=== PATIENT | male | born 1995 | race African-American/Black ===

== ENCOUNTER 2016-11-06 02:29 | Emergency (ER) | payer OTHER ==
[2016-11-06 02:53] VITALS: BP 125/80; PULSE 60; TEMP 97.2; BMI 32.5
[2016-11-06] MEDS ORDERED: SODIUM CHLORIDE 1,000 ML IV STA (03:07)
[2016-11-06] MEDS ORDERED: FAMOTIDINE 20 MG/50 ML IVPB 50 ML IVPB ONE ×2 (03:07→03:16)
[2016-11-06 03:35] LABS: EOSINOPHIL 1.3 % (0-4.5); MCH 29.4 pg (25.7-33.7); MCHC 33.5 g/dl (32.0-35.9); MEAN CELL VOLUME 87.8 fl (80-96); MEAN PLT VOLUME 8.9 fl (7.5-11.1); NEUTROPHILS 42.7 % (42.8-82.8); PLATELET COUNT 156 K/MM3 (134-434); RDW 13.6 % (11.9-15.9); WHITE BLOOD COUNT 4.7 K/mm3 (4.0-10.0)
--- NOTE | 2016-11-06 04:01 | PDOC ---
History of Present Illness - General Chief Complaint: Pain, Acute Stated Complaint: ABD PAIN Time Seen by Provider: 11/06/16 02:40 History Source: Patient, Parent(s) (Mother) Exam Limitations: No Limitations - History of Present Illness Travel History: No Initial Comments: 11/06/16 03:57 21yo Male patient presents to ED c/o lower abd pain x 3 days. Denies fever, n/v/ d, constipation, back pain, CP, dysuria, hematuria, change in appetite, or any other complaints at this time. PCP- Dr. Austin. Timing/Duration: reports: constant Quality: reports: mild Abdominal Pain Onset Location: reports: suprapubic Pain Radiation: reports: no radiation Activities at Onset: reports: none Treatment Prior to Arrive: worse with: analgesics, antacids, cold pack, heat, laxative, enema, other Aggravating Factors: worse with: None, Defecation, Eating, Emotional upset, Exertion, [place], Movement, Voiding, Change in position Alleviating Factors: worse with: None, Belching, Shallow Breathing, Defecation, Eating, Holding Breath, Passing Gas, Change in Position, Rest, Voiding, Vomiting Past History - Travel Traveled outside of the country in the last 30 days: No Close contact w/someone who was outside of country & ill: No - Past Medical History Allergies/Adverse Reactions: Allergies Allergy/AdvReac Type Severity Reaction Status Date / Time No Known Allergies Allergy Verified 11/06/16 02:43 Home Medications: Ambulatory Orders NK [No Known Home Medication] 11/06/16 - Psycho/Social/Smoking Cessation Hx Suicidal Ideation: No Smoking History: Never smoked Have you smoked in the past 12 months: No Information on smoking cessation initiated: No Hx Alcohol Use: No Drug/Substance Use Hx: No Abd/GI Specific PMHX - Complaint Specific PMHX Colitis: No Diverticulitis: No Gall Bladder Disease: No GERD: No Hepatitis: No Irritable Bowel Synd (IBS): No Pancreatitis: No GI Ulcer Disease: No Review of Systems - Review of Systems Able to Perform ROS?: Yes Is the patient limited Maltese proficient: No Constitutional: No: Chills, Fever ABD/GI: Yes: Other (Abdominal Pain Lower). No: Constipated, Diarrhea, Difficulty Swallowing, Nausea, Poor Appetite, Poor Fluid Intake, Rectal Bleeding , Vomiting : No: Burning, Dysuria, Discharge, Hematuria, Pain Musculoskeletal: No: Back Pain Integumentary: No: Bruising, Erythema Neurological: No: Headache All Other Systems: Reviewed and Negative *Physical Exam - Vital Signs Last Vital Signs Temp Pulse Resp BP Pulse Ox 97.2 F L 60 20 125/80 100 11/06/16 02:44 11/06/16 02:44 11/06/16 02:44 11/06/16 02:44 11/06/16 02:44 - Physical Exam General Appearance: Yes: Nourished, Appropriately Dressed. No: Apparent Distress, Mild Distress, Moderate Distress, Severe Distress Neck: positive: Trachea midline, Supple. negative: Stridor, Lymphadenopathy (R) , Lymphadenopathy (L) Respiratory/Chest: positive: Lungs Clear, Normal Breath Sounds. negative: Respiratory Distress, Accessory Muscle Use, Labored Respiration, Rapid RR Cardiovascular: positive: Regular Rhythm, Regular Rate. negative: Edema, JVD, Murmur Gastrointestinal/Abdominal: positive: Normal Bowel Sounds, Tender (Lower abdomen (Suprapubic)), Soft, Tenderness. negative: Distended, Guarding, Rebound Musculoskeletal: positive: Normal Inspection. negative: CVA Tenderness Extremity: positive: Normal Capillary Refill, Normal Inspection, Normal Range of Motion. negative: Pedal Edema, Swelling Integumentary: positive: Normal Color, Dry, Warm Neurologic: positive: limnology teacher II-XII NML intact, Fully Oriented, Alert, Normal Mood/ Affect, Normal Response, Motor Strength 5/5 ED Treatment Course - LABORATORY CBC & Chemistry Diagram: 11/06/16 03:18 11/06/16 03:18 - ADDITIONAL ORDERS Additional order review: 11/06/16 03:18 RBC 4.75 MCV 87.8 MCHC 33.5 RDW 13.6 MPV 8.9 Neutrophils % 42.7 L Lymphocytes % 44.3 H Monocytes % 10.7 H Eosinophils % 1.3 Basophils % 1.0 - Medications Given in the ED: ED Medications Discontinued Medications Generic Name Dose Route Start Last Admin Trade Name Freq PRN Reason Stop Dose Admin Famotidine/Sodium Chloride 50 mls @ 100 mls/hr 11/06/16 03:07 11/06/16 03:37 Pepcid 20 Mg Premixed Ivpb - IVPB 11/06/16 03:36 100 mls/hr ONCE ONE Administration Progress Note - Progress Note Progress Note: Patient on cell phone "Face Time" with someone laughing. No acute distress noted. *DC/Admit/Observation/Transfer Diagnosis at time of Disposition: Abdominal pain Qualifiers: Abdominal location: lower abdomen, unspecified Qualified Code(s): R10.30 - Lower abdominal pain, unspecified - Discharge Dispostion Disposition: HOME Condition at time of disposition: Improved Admit: No - Patient Instructions Printed Discharge Instructions: DI for Abdominal Pain-Adult Additional Instructions: FOLLOW UP WITH YOUR DOCTOR DISCUSSED. MOTRIN OR TYLENOL FOR PAIN NEEDED. RETURN IF SYMPTOMS WORSEN, OR ANY CONCERNS FOR FURTHER EVALUATION. Print Language: KAZAKH
[2016-11-06 04:05] LABS: ALBUMIN 3.9 g/dl (3.4-5.0); ALK PHOS 47 U/L (45-117); AMYLASE 90 U/L (25-115); ANION GAP 8 (8-16); BILIRUBIN,TOTAL 0.4 mg/dL (0.2-1.0); CALCIUM 8.5 mg/dL (8.5-10.1); CO2 28 mmol/L (21-32); GLUCOSE,RANDOM 96 mg/dL (74-106); SGOT/AST 9 U/L (15-37); SGPT/ALT 17 U/L (12-78); TOT PROT 6.5 g/dl (6.4-8.2)
[2016-11-06 04:25] LABS: URINE APPEARANCE CLEAR; URINE BILIRUBIN NEGATIVE (NEGATIVE); URINE BLOOD NEGATIVE (NEGATIVE); URINE COLOR LT. YELLOW; URINE GLUCOSE (UA) NEGATIVE (NEGATIVE); URINE KETONE NEGATIVE (NEGATIVE); URINE LEUK ESTERASE NEGATIVE (NEGATIVE); URINE NITRITE NEGATIVE (NEGATIVE); URINE PROTEIN NEGATIVE (NEGATIVE); URINE UROBILINOGEN 0.2 E.U/dl E.U./dl (0.2-1.0)
== END 2016-11-06 05:06 | disposition home or self-care (01) ==
LOC: JER 02:29
PROC: 3E033GC Introduction of Other Therapeutic Substance into Peripheral Vein, Percutaneous Approach (ICD-10-PCS; principal; 2016-11-06)
PROC: 3E0337Z Introduction of Electrolytic and Water Balance Substance into Peripheral Vein, Percutaneous Approach (ICD-10-PCS; 2016-11-06)
DX: R10.30 Lower abdominal pain, unspecified (principal)
CPT/HCPCS: 36415; 80053; 81003; 82150; 83690; 85025; 96361; 96365; 99283-25

== ENCOUNTER 2020-05-12 17:26 | Inpatient (IN) | payer OTHER ==
--- NOTE | 2020-05-12 17:37 | PDOC ---
History of Present Illness - General Chief Complaint: Pain Stated Complaint: testicular pain Time Seen by Provider: 05/12/20 17:37 Past History - Medical History Allergies/Adverse Reactions: Allergies Allergy/AdvReac Type Severity Reaction Status Date / Time No Known Allergies Allergy Verified 03/19/18 18:13 Home Medications: Ambulatory Orders NK [No Known Home Medication] 11/06/16 COPD: No - Psycho-Social/Smoking History Smoking History: Never smoked Have you smoked in the past 12 months: No Discharge - Follow up/Referral Referrals: Ravindra Austin MD [Primary Care Provider] - - Patient Discharge Instructions - Post Discharge Activity
--- OUTSIDE RECORDS SUMMARY | 2020-05-12 17:44 | XMS ---
:1995 Author Organization [facility] Support Name Relationship Address Phone UE Unavailable Unavailable Unavailable ELTON CLARK MOTHER [address] [place] [address] Re-disclosure Warning The records that you are about to access may contain information from federally- assisted alcohol or drug abuse programs. If such information is present, then the following federally mandated warning applies: This information has been disclosed to you from records protected by federal confidentiality rules (42 CFR part 2). The federal rules prohibit you from making any further disclosure of this information unless further disclosure is expressly permitted by the written consent of the person to whom it pertains or as otherwise permitted by 42 CFR part 2. A general authorization for the release of medical or other information is NOT sufficient for this purpose. The Federal rules restrict any use of the information to criminally investigate or prosecute any alcohol or drug abuse patient.The records that you are about to access may contain highly sensitive health information, the redisclosure of which is protected by Article 27-F of the [facility] Public Health law. If you continue you may haveaccess to information: Regarding HIV / AIDS; Provided by facilities licensed or operated by the [facility] Office of Mental Health; or Provided by the [facility] Office for People With Developmental Disabilities. If such information is present, then the following [facility] mandated warning applies: This information has been disclosed to you from confidential records which are protected by state law. State law prohibits you from making any further disclosure of this information without the specific written consent of the person to whom it pertains, or as otherwise permitted by law. Any unauthorized further disclosure in violation of state law may result in a fine or fci sentence or both. A general authorization for the release of medical or other information is NOT sufficient authorization for further disclosure. Insurance Providers Payer name Policy type Policy ID Covered Covered green party's Policy P [place] / Coverage green party ID relationship to [employer] Inf ormation type chi [place] MEDICAID [id number] O
--- NOTE | 2020-05-12 18:01 | PDOC ---
Attending Attestation - Resident Resident Name: Summer Mayer - ED Attending Attestation I have performed the following: I have examined & evaluated the patient, The case was reviewed & discussed with the resident, I agree w/resident's findings & plan, Exceptions are as noted - HPI HPI: 05/12/20 18:01 25y M no pmhx presents with complaint of abdominal pain. Pt states he has ana maria having mild intermittent pain for ~1-2 weeks however today, the pain was much worse and in the RLQ / R testicular region. He endorses feeling nauseus without vomiting. denies any fever/chills, cp, sob, back pain. - Physicial Exam PE: 05/12/20 18:03 exam General: No acute distress Testicular exam: normal testicular exam, no focal tenderness/induration abd: mild RLQ ttp, no tenderness at mcburnies, no hernia appreciated, no rebound/guarding - Medical Decision Making ddx includes but is not limited to kidney stones, torsion, appendicitis signed out to evening team to reassess and dispo Discharge - Discharge Information Problems reviewed: Yes Clinical Impression/Diagnosis: Testicular pain, right Abdominal pain Qualifiers: Abdominal location: right lower quadrant Qualified Code(s): R10.31 - Right lower quadrant pain Appendicitis Qualifiers: Appendicitis type: acute appendicitis Acute appendicitis type: with localized peritonitis Appendicitis gangrene presence: without gangrene Appendicitis perforation presence: without perforation Appendicitis abscess presence: without abscess Qualified Code(s): K35.30 - Acute appendicitis with localized peritonitis, without perforation or gangrene Condition: Stable - Follow up/Referral - Patient Discharge Instructions - Post Discharge Activity
[2020-05-12] MEDS ORDERED: SODIUM CHLORIDE 1,000 ML IV ONE (18:02)
[2020-05-12 19:30] LABS: BASO % 0.2 % (0-2.0); HEMATOCRIT 41.4 % (35.4-49); HEMOGLOBIN 14.1 GM/dL (11.7-16.9); LYMPH % 2.6 % (8-40); MCH 30.2 pg (25.7-33.7); MCHC 34.2 g/dl (32.0-35.9); MEAN CELL VOLUME 88.2 fl (80-96); MEAN PLT VOLUME 9.3 fl (7.5-11.1); MONO % 5.3 % (3.8-10.2); NEUT % 91.9 % (42.8-82.8); PLATELET COUNT 122 K/MM3 (134-434); RBC 4.69 M/mm3 (4.00-5.60); RDW 13.2 % (11.9-15.9); WHITE BLOOD COUNT 9.9 K/mm3 (4.0-10.0)
--- NOTE | 2020-05-12 19:34 | PDOC ---
History of Present Illness - General Chief Complaint: Pain Stated Complaint: testicular pain Time Seen by Provider: 05/12/20 17:37 - History of Present Illness Initial Comments: HPI: 05/12/20 19:26 25 yo M no PMH presenting with R testicular pain. Mr. Blackman states that he has had chronic suprapubic abdominal pain for months, has an upcoming GI appointment. Last night, developed nausea with 3 episodes of nbnb vomiting. This morning, subsequently developed sharp intermittent R testicular pain, exacerbated by coughing, lasting up to two minutes at a time. Has had three total episodes of R testicular pain today. Denies history of STIs. ROS: GENERAL/CONSTITUTIONAL: denies fever, chills, diaphoresis, generalized weakness HEAD, EYES, EARS, NOSE AND THROAT: denies rhinorrhea, nasal congestion NEUROLOGIC: denies headache, focal weakness, dizziness, mental status changes CARDIOVASCULAR: denies chest pain, syncope, palpitations, lightheadedness RESPIRATORY: denies cough, shortness of breath, dyspnea with exertion GASTROINTESTINAL: endorses abdominal pain, nausea and vomiting (now resolved). Denies diarrhea, constipation GENITOURINARY: endorses right testicular pain. Denies dysuria, frequency, u rgency, penile discharge MUSCULOSKELETAL: denies myalgia, arthralgia, joint swelling, back pain, neck pain SKIN: denies rash, itching PE: Assessed after ultrasound, stated that his pain was resolved at time of exam. Gen: well-developed, well-nourished, NAD Neuro: AAOX4, CN II-XII intact HEENT: atraumatic, normocephalic Neck: trachea midline, supple CV: regular rate, regular rhythm, no murmurs, rubs, or gallops Pulm: CTA b/l, no wheezing Abd: soft, non-distended, mild suprapubic tenderness : normal penis, normal scrotum without tenderness, normal cremasteric reflex MSK: full ROM, intact pulses Extr: no edema, no deformities Skin: warm, dry MDM: Patient was taken straight to ultrasound to rule out testicular torsion. - CBC, CMP - UA - GC/CS urine - reassess 05/12/20 19:52 Scrotal US: The testes appear unremarkable in overall size, contour and echogenicity. No obvious mass lesion is identified. A mildly dilated duct is seen within the upper half of the right testis with a 0.2 cm diameter. There is no Doppler evidence of testicular torsion (reported sensitivity 85%). Correlate clinically. No hydrocele is seen. The epididymal structures appear unremarkable bilaterally. Bilateral varicoceles are noted with the patient in a recumbent position. Impression: No Doppler evidence of testicular torsion as described above. Bilateral varicoceles are seen. A mildly dilated duct is seen within the upper half of the right testis. Urology consultation is suggested as well as 2 month follow-up sonography. CBC unremarkable. 05/12/20 20:01 CMP with elevated t bili at 1.6, otherwise unremarkable. Will await UA results. 05/12/20 20:33 UA negative. Will get US appendix to r/o appendicitis. 05/12/20 21:25 Pelvis US: appendix appears to be mildly thickened with a 1cm diameter. There also appears to be a small amount of fluid accululation within the appendiceal lumen. No gross periappendiceal fluid or abscess is visualized. These findings could be on the basis of acute appendicitis. Correlate clinically. Call placed to surgery electronics hardware design engineer, will await call back from Dr. Ordonez. Will give Ofirmev, get pre-op labs, give Zosyn, admit. 05/12/20 21:44 Dr. Reynolds asks that we get a CT abd/pelvis with contrast to confirm the diagnosis. Will order. Microblog already sent for admission. Past History - Medical History Allergies/Adverse Reactions: Allergies Allergy/AdvReac Type Severity Reaction Status Date / Time No Known Allergies Allergy Verified 05/12/20 17:39 Home Medications: Ambulatory Orders NK [No Known Home Medication] 11/06/16 COPD: No - Psycho-Social/Smoking History Smoking History: Current every day smoker Have you smoked in the past 12 months: No Number of Cigarettes Smoked Daily: 2 Information on smoking cessation initiated: No - Substance Abuse Hx (Audit-C & DAST Scrn) In the last yr the pt used illegal drug/Rx for NonMed reason: Yes Score: Yes response is considered Positive: 1 Screen Result (Positive result requires Nsg. DAST-10): Positive *Physical Exam - Vital Signs Last Vital Signs Temp Pulse Resp BP Pulse Ox 99.7 F H 90 16 118/67 99 05/12/20 17:36 05/12/20 17:36 05/12/20 17:36 05/12/20 17:36 05/12/20 17:36 ED Treatment Course - LABORATORY CBC & Chemistry Diagram: 05/14/20 06:48 05/14/20 06:48 - Medications Given in the ED: ED Medications Discontinued Medications Generic Name Dose Route Start Last Admin Trade Name Freq PRN Reason Stop Dose Admin Sodium Chloride 1,000 mls @ 1,000 mls/hr 05/12/20 18:02 05/12/20 18:21 Normal Saline - IV 05/12/20 19:01 1,000 mls/hr .Q1H ONE Administration Discharge - Discharge Information Problems reviewed: Yes Clinical Impression/Diagnosis: Testicular pain, right Abdominal pain Qualifiers: Abdominal location: right lower quadrant Qualified Code(s): R10.31 - Right lower quadrant pain Appendicitis Qualifiers: Appendicitis type: acute appendicitis Acute appendicitis type: with localized peritonitis Appendicitis gangrene presence: without gangrene Appendicitis perforation presence: without perforation Appendicitis abscess presence: without abscess Qualified Code(s): K35.30 - Acute appendicitis with localized peritonitis, without perforation or gangrene Condition: Stable Disposition: HOME - Follow up/Referral - Patient Discharge Instructions - Post Discharge Activity
[2020-05-12 19:54] LABS: ALBUMIN 4.1 g/dl (3.4-5.0); BILIRUBIN,TOTAL 1.6 mg/dL (0.2-1); BLOOD UREA NITROGEN 11.8 mg/dL (7-18); CALCIUM 8.7 mg/dL (8.5-10.1); POTASSIUM 3.5 mmol/L (3.5-5.1)
[2020-05-12 20:12] LABS: PLATELET ESTIMATE DECREASED
[2020-05-12 20:28] LABS: PH,URINE 5.5 (5.0-8.0); URINE APPEARANCE CLEAR; URINE BILIRUBIN NEGATIVE (NEGATIVE); URINE COLOR YELLOW; URINE GLUCOSE (UA) NEGATIVE (NEGATIVE); URINE KETONE 1+ (NEGATIVE); URINE LEUK ESTERASE NEGATIVE (NEGATIVE); URINE NITRITE NEGATIVE (NEGATIVE); URINE PROTEIN TRACE (NEGATIVE)
[2020-05-12] MEDS ORDERED: ACETAMINOPHEN 1000 MG/100 ML VIAL (NON FORMULARY) IVPB ONE (21:32)
[2020-05-12] MEDS ORDERED: PIPERACILLIN/TAZOB 3.375 GM 3.375 GM in DEXTROSE 5%-WATER - 50 ML IVPB ONE (21:37)
[2020-05-12] MEDS ORDERED: PIPERACILLIN/TAZOB 3.375 GM 3.375 GM/50 ML BAG IVPB ONE (21:47)
[2020-05-12] MEDS ORDERED: ACETAMINOPHEN INJECTION 100 ML IVPB ONE (21:47)
--- NOTE | 2020-05-12 22:21 | PN ---
Teaching Attending Note Name of Resident: Wiliam Iverson ATTENDING PHYSICIAN STATEMENT I saw and evaluated the patient. I reviewed the resident's note and discussed the case with the resident. I agree with the resident's findings and plan as documented. SUBJECTIVE: Patient is a 25 year old man with no reported PMH presenting with right testicular pain for one day. Patient states that he has had chronic suprapubic abdominal pain for months and has an upcoming GI appointment. Last night, he developed nausea with 3 episodes of nonbloody, nonbilious vomiting. This morning, he developed sharp intermittent right testicular pain, exacerbated by coughing, lasting up to two minutes at a time. Has had three total episodes of right testicular pain today. Patient denies history of STIs. Had a recent wisdom tooth extraction and is on antibiotics. Patient denies chest pain, shortness of breath, headache, palpitations, dizziness, fever, chills, diarrhea, constipation, dysuria, frequency, urgency, melena, hematochezia or hematuria. He vapes and smokes marijuana. Denies alcohol or illicit drug use. No sick contacts or recent travels. Family history of DM, HLD and breast cancer in mother's side. OBJECTIVE: Alert Vital Signs Period Temp Pulse Resp BP Sys/Dunlap Pulse Ox Last 24 Hr 98.4 F-99.7 F 76-90 16-18 117-118/67-71 99-99 HEENT: No Jaundice, eye redness or discharge, PERRLA, EOMI. Normocephalic, atraumatic. External ears are normal and hearing is grossly intact. No nasal discharge. Neck: Supple, nontender. No palpable adenopathy or thyromegaly. No JVD Chest: Good effort. Clear to auscultation and percussion. Heart: Regular. No S3, rub or murmur Abdomen: Not distended, soft, lower abdominal tenderness and no HSM. No rebound or guarding. Normal bowel sounds. Ext: Peripheral pulses intact. No leg edema. Skin: Warm and dry. No petechiae, rash or ecchymosis. Neuro: Alert. Oriented x3. CN 2-12 grossly intact. Sensation grossly intact in all four extremities and DTR are symmetric. Psych: Appropriate mood and affect. Good insight. Home Medications Medication Instructions Recorded NK [No Known Home Medication] 11/06/16 Abnormal Lab Results 05/12/20 05/12/20 05/12/20 18:30 18:30 20:10 Plt Count 122 L D Absolute Neuts (auto) 9.1 H Neutrophils % 91.9 H D Lymphocytes % 2.6 L D Lymphocytes % (Manual) 3.0 L PT with INR INR Anion Gap 7 L Total Bilirubin 1.6 H AST 14 L Urine Ketones 1+ H 05/12/20 22:40 Plt Count Absolute Neuts (auto) Neutrophils % Lymphocytes % Lymphocytes % (Manual) PT with INR 15.00 H INR 1.27 H Anion Gap Total Bilirubin AST Urine Ketones Current Medications Generic Name Dose Route Start Last Admin Trade Name Freq PRN Reason Stop Dose Admin Dextrose/Sodium Chloride 1,000 mls @ 125 mls/hr 05/12/20 23:45 05/12/20 23:52 D5-Ns - IV 125 mls/hr ASDIR ETHAN Administration Piperacillin Sod/Tazobactam 50 mls @ 100 mls/hr 05/13/20 02:00 Sod 3.375 gm/ Dextrose IVPB Q8H-IV ETHAN Protocol Piperacillin Sod/Tazobactam 50 mls @ 100 mls/hr 05/13/20 02:00 Sod 3.375 gm/ Dextrose IVPB 05/13/20 18:29 Q8H-IV ETHAN Protocol ASSESSMENT AND PLAN: 1. Appendicitis - Pelvic ultrasound shows evidence of appendicitis. Ultrasound of the scrotum shows bilateral varicocele but no testicular torsion. Consult Urology. CT scan of abdomen/pelvis pending. Viral testing for COVID-19 ordered and patient placed on airborne, droplet and contact isolation. STI panel ordered and Surgery consulted. Elevated bilirubin and thrombocytopenia are unexplained - will trend. Will get PT/INR, keep him NPO, give IV D5NS and continue IV Zosyn. EKG pending. 2. DVT prophylaxis - SCD 3. Advance directives - Full code
--- OUTSIDE RECORDS SUMMARY | 2020-05-12 22:25 | XMS ---
:1995 Author Organization [facility] Support Name Relationship Address Phone FAMILY DOLLAR Unavailable [address] [place] [address] UE Unavailable Unavailable Unavailable ELTON CLARK MOTHER [address] [place] [address] Re-disclosure Warning The records that you are [...] is protected by Article 27-F of the [facility] Public Health law. If you continue you may haveaccess to information: Regarding HIV / AIDS; Provided by facilities licensed or operated by the [facility] Office of Mental Health; or Provided by the [facility] Office for People With Developmental Disabilities. If such information is present, then the following [facility] mandated warning applies: This information has been [...] law may result in a fine or residential sentence or both. A general authorization for the release of medical or other information is NOT sufficient authorization for further disclosure. Insurance Providers Payer name Policy type Policy ID Covered Covered constitution party's Policy P [place] / Coverage constitution party ID relationship to [employer] ormation type chi [employer] MEDICAID [id number] O
--- NOTE | 2020-05-12 22:55 | PDOC ---
*Physical Exam - Vital Signs Last Vital Signs Temp Pulse Resp BP Pulse Ox 98.4 F 76 18 117/71 99 05/12/20 20:58 05/12/20 20:58 05/12/20 20:58 05/12/20 20:58 05/12/20 20:58 ED Treatment Course - LABORATORY CBC & Chemistry Diagram: 05/12/20 18:30 05/12/20 18:30 - ADDITIONAL ORDERS Additional order review: Laboratory Results 05/12/20 05/12/20 20:10 18:30 Sodium 137 Potassium 3.5 Chloride 103 Carbon Dioxide 28 Anion Gap 7 L BUN 11.8 Creatinine 1.0 Est GFR (CKD-EPI)AfAm 120.70 Est GFR (CKD-EPI)NonAf 104.14 Random Glucose 78 Calcium 8.7 Total Bilirubin 1.6 H AST 14 L ALT 20 Alkaline Phosphatase 50 Total Protein 7.0 Albumin 4.1 Urine Color Yellow Urine Appearance Clear Urine pH 5.5 Ur Specific [place] 1.022 Urine Protein Trace Urine Glucose (UA) Negative Urine Ketones 1+ H Urine Blood Negative Urine Nitrite Negative Urine Bilirubin Negative Urine Urobilinogen 2.0 Ur Leukocyte Esterase Negative 05/12/20 18:30 RBC 4.69 MCV 88.2 MCHC 34.2 RDW 13.2 MPV 9.3 Neutrophils % 91.9 H D Lymphocytes % 2.6 L D Monocytes % 5.3 Eosinophils % 0.0 D Basophils % 0.2 - RADIOLOGY Radiology Studies Ordered: Category Date Time Status PELVIS(OTHER) US [US] Stat Ultrasound 05/12/20 20:35 Completed - Medications Given in the ED: ED Medications Discontinued Medications Generic Name Dose Route Start Last Admin Trade Name Diandra PRN Reason Stop Dose Admin Acetaminophen 1,000 mg 05/12/20 21:32 05/12/20 21:57 Ofirmev Injection - IVPB 05/12/20 21:33 1,000 mg ONCE ONE Administration Sodium Chloride 1,000 mls @ 1,000 mls/hr 05/12/20 18:02 05/12/20 18:21 Normal Saline - IV 05/12/20 19:01 1,000 mls/hr .Q1H ONE Administration Piperacillin Sod/Tazobactam 50 mls @ 100 mls/hr 05/12/20 21:37 05/12/20 22:11 Sod 3.375 gm/ Dextrose IVPB 05/12/20 22:06 100 mls/hr ONCE ONE Administration Protocol Medical Decision Making - Medical Decision Making 05/12/20 22:54 Pt signed out to me. He has RLQ pain. We sent him for sono of the ap[pendix, as he is extremely thin. SONO shows + appy; ot will get CT scan for surgeon. Pt will be admitted for appendectomy Surgeon and med surg aware. 05/12/20 22:56 On my exam, pt also has a defect in his inguinal canal, my finger goes thru his outer and inner inguinal ring. Pt can get that looked at in the future, or perhaps surgeon can address it now. Discharge - Discharge Information Problems reviewed: Yes Clinical Impression/Diagnosis: Testicular pain, right, Appendicitis Abdominal pain Qualifiers: Abdominal location: right lower quadrant Qualified Code(s): R10.31 - Right lower quadrant pain - Follow up/Referral - Patient Discharge Instructions - Post Discharge Activity
[2020-05-12 23:01] LABS: INR 1.27 (0.83-1.09)
[2020-05-12 23:04] LABS: ACTIVATED PTT 27.1 SECONDS (25.2-36.5)
[2020-05-12] MEDS: DEXTROSE 5%-NORMAL SALINE 1,000 ML IV SCH (23:52)
[2020-05-13] MEDS ORDERED: PIPERACILLIN/TAZOB 3.375 GM 3.375 GM/50 ML BAG IVPB ONE (02:07)
[2020-05-13] MEDS: PIPERACILLIN/TAZOB 3.375 GM 3.375 GM in DEXTROSE 5%-WATER - 50 ML IVPB SCH ×3 (02:13→15:13)
--- NOTE | 2020-05-13 06:21 | HP ---
CHIEF COMPLAINT: Abdominal and testicular pain PCP: HISTORY OF PRESENT ILLNESS: 25 yo M w/ no PMHx presents w/ abdominal pain x1 day after coming home from work. Ptn denied any inciting event for the pain including trauma. Ptn decided to come to ED today as the pain increased in intensity. Described as a colicky pain, with variable intensity, currently 4/10, located in the lower abdomen w/ associated testicular pain. Last night, he developed fever (Tmax 101), nausea with 3 episodes of nonbloody, nonbilious vomiting. Patient denies history of STIs, states he is not sexually active. Had a recent wisdom tooth extraction and is on antibiotics. Patient denies current F/C, VALERA, changes in vision, CP, SoB, N/V/D, changes in bowel/bladder habits Denies alcohol or illicit drug use. No sick contacts or recent travels. Family history of DM, Asthma, HLD and breast cancer in mother's side ER course was notable for: (1): Scrotal US: The testes appear unremarkable in overall size, contour and echogenicity. No obvious mass lesion is identified. A mildly dilated duct is seen within the upper half of the right testis with a 0.2 cm diameter. There is no Doppler evidence of testicular torsion (reported sensitivity 85%). Correlate clinically. No hydrocele is seen. The epididymal structures appear unremarkable bilaterally. Bilateral varicoceles are noted with the patient in a recumbent position. Impression: No Doppler evidence of testicular torsion as described above. Bilateral varicoceles are seen. A mildly dilated duct is seen within the upper half of the right testis. Urology consultation is suggested as well as 2 month follow-up sonography. (2)Pelvis US: appendix appears to be mildly thickened with a 1cm diameter. There also appears to be a small amount of fluid accululation within the appendiceal lumen. No gross periappendiceal fluid or abscess is visualized. These findings could be on the basis of acute appendicitis. Correlate clinically. (3) Recent Travel: PAST MEDICAL HISTORY: As above PAST SURGICAL HISTORY: As above Social History: Smoking: vapes 1 pod /week Alcohol: Socially Drugs: smokes marijuana. Lives w/: Mom (Milady: [phone]) Allergies No Known Allergies Allergy (Verified 05/12/20 17:39) HOME MEDICATIONS: Home Medications Medication Instructions Recorded NK [No Known Home Medication] 04/05/17 REVIEW OF SYSTEMS CONSTITUTIONAL: Absent: fever, chills, diaphoresis, generalized weakness, malaise, loss of appe tite, weight change HEENT: Absent: rhinorrhea, nasal congestion, throat pain, throat swelling, difficulty swallowing, mouth swelling, ear pain, eye pain, visual changes CARDIOVASCULAR: Absent: chest pain, syncope, palpitations, irregular heart rate, lightheadedness, peripheral edema RESPIRATORY: Absent: cough, shortness of breath, dyspnea with exertion, orthopnea, wheezing, stridor, hemoptysis GASTROINTESTINAL: Absent: abdominal distension, nausea, vomiting, diarrhea, constipation, melena, hematochezia GENITOURINARY: Absent: dysuria, frequency, urgency, hesitancy, hematuria, flank pain MUSCULOSKELETAL: Absent: myalgia, arthralgia, joint swelling, back pain, neck pain SKIN: Absent: rash, itching, pallor ENDOCRINE: Absent: unexplained weight gain, unexplained weight loss, heat intolerance, cold intolerance NEUROLOGIC: Absent: headache, focal weakness or paresthesias, dizziness, unsteady gait, seizure, mental status changes, bladder or bowel incontinence PSYCHIATRIC: Absent: anxiety, depression, suicidal or homicidal ideation, hallucinations. PHYSICAL EXAMINATION Vital Signs - 24 hr 05/12/20 05/12/20 05/13/20 17:36 20:58 01:47 Temperature 99.7 F H 98.4 F Pulse Rate 90 Pulse Rate [ 76 66 Right Radial] Respiratory 16 18 18 Rate Blood Pressure 118/67 Blood Pressure 117/71 107/56 L [Right Arm] O2 Sat by Pulse 99 99 100 Oximetry (%) GENERAL: Awake, alert, and fully oriented, in no acute distress. HEAD: Normal with no signs of trauma. EYES: Pupils equal, round and reactive to light, extraocular movements intact, sclera anicteric, conjunctiva clear. No lid lag. EARS, NOSE, THROAT: Ears normal, nares patent, oropharynx clear without exudates. Moist mucous membranes. NECK: Normal range of motion, supple without lymphadenopathy, JVD, or masses. LUNGS: Breath sounds equal, clear to auscultation bilaterally. No wheezes, and no crackles. No accessory muscle use. HEART: Regular rate and rhythm, normal S1 and S2 without murmur, rub or gallop. ABDOMEN: Soft, nontender, not distended, normoactive bowel sounds, no guarding. Positive rebound. Negative McBurney's, Negative Psoas MUSCULOSKELETAL: Normal range of motion at all joints. No bony deformities or tenderness. No CVA tenderness. UPPER EXTREMITIES: 2+ pulses, warm, well-perfused. No cyanosis. No clubbing. No peripheral edema. LOWER EXTREMITIES: 2+ pulses, warm, well-perfused. No calf tenderness. No peripheral edema. NEUROLOGICAL: Cranial nerves II-XII intact. Normal speech. Normal gait. PSYCHIATRIC: Cooperative. Good eye contact. Appropriate mood and affect. SKIN: Warm, dry, normal turgor, no rashes or lesions noted, normal capillary refill. Laboratory Results - last 24 hr 05/12/20 05/12/20 05/12/20 18:30 18:30 20:10 WBC 9.9 RBC 4.69 Hgb 14.1 Hct 41.4 MCV 88.2 MCH 30.2 MCHC 34.2 RDW 13.2 Plt Count 122 L D MPV 9.3 Absolute Neuts (auto) 9.1 H Total Counted 100 Neutrophils % 91.9 H D Neutrophils % (Manual) 79.0 Band Neutrophils % 13.0 Lymphocytes % 2.6 L D Lymphocytes % (Manual) 3.0 L Monocytes % 5.3 Monocytes % (Manual) 5 Eosinophils % 0.0 D Basophils % 0.2 Nucleated RBC % 0 Platelet Estimate Decreased Platelet Comment No clumping noted PT with INR INR PTT (Actin FS) Sodium 137 Potassium 3.5 Chloride 103 Carbon Dioxide 28 Anion Gap 7 L BUN 11.8 Creatinine 1.0 Est GFR (CKD-EPI)AfAm 120.70 Est GFR (CKD-EPI)NonAf 104.14 Random Glucose 78 Calcium 8.7 Total Bilirubin 1.6 H AST 14 L ALT 20 Alkaline Phosphatase 50 Total Protein 7.0 Albumin 4.1 Urine Color Yellow Urine Appearance Clear Urine pH 5.5 Ur Specific Kathleen 1.022 Urine Protein Trace Urine Glucose (UA) Negative Urine Ketones 1+ H Urine Blood Negative Urine Nitrite Negative Urine Bilirubin Negative Urine Urobilinogen 2.0 Ur Leukocyte Esterase Negative SARS-CoV-2 (PCR) Blood Type Antibody Screen 05/12/20 05/12/20 05/12/20 22:40 22:40 23:30 WBC RBC Hgb Hct MCV MCH MCHC RDW Plt Count MPV Absolute Neuts (auto) Total Counted Neutrophils % Neutrophils % (Manual) Band Neutrophils % Lymphocytes % Lymphocytes % (Manual) Monocytes % Monocytes % (Manual) Eosinophils % Basophils % Nucleated RBC % Platelet Estimate Platelet Comment PT with INR 15.00 H INR 1.27 H PTT (Actin FS) 27.1 Sodium Potassium Chloride Carbon Dioxide Anion Gap BUN Creatinine Est GFR (CKD-EPI)AfAm Est GFR (CKD-EPI)NonAf Random Glucose Calcium Total Bilirubin AST ALT Alkaline Phosphatase Total Protein Albumin Urine Color Urine Appearance Urine pH Ur Specific Kathleen Urine Protein Urine Glucose (UA) Urine Ketones Urine Blood Urine Nitrite Urine Bilirubin Urine Urobilinogen Ur Leukocyte Esterase SARS-CoV-2 (PCR) Negative Blood Type O NEGATIVE Antibody Screen Negative ASSESSMENT/PLAN: 25 yo M w/ no PMHx presents w/ abdominal pain x1 day after coming home from work. Ptn denied any inciting event for the pain including trauma. Ptn decided to come to ED today as the pain increased in intensity. Described as a colicky pain, with variable intensity, currently 4/10, located in the lower abdomen w/ associated testicular pain. RULE OUT APPENDICITIS -Afebrile w/o WBC -Hx of vague abdominal pain -Positive rebound tenderness -Abd US: Appendix appears to be mildly thickened with a 1cm diameter. Small amount of fluid accululation within the appendiceal lumen. -FU CT Scan Abdomen: -FU Surgery recs s/p CT -c/w Zosyn Day 1 -NPO RULE OUT EPIDIDIMITIS vs VARICOCELE -Hx of testicular pain -Scrotal US: No evidence of torsion. b/l varicoceles. dilated duct in right testes 0.2cm. -FU GC/CT cx -FU Blood cx -FU Urology 2/2 dilated ducts w/ b/l varicocele PPx -DVT: SCDs w/ regular ambulation FEN -D5 1/2 NS -Lytes -NPO DISPO -continue to monitor on the med/surg floors Family Medical History Family History: As Documented Visit type - Emergency Visit Emergency Visit: Yes ED Registration Date: 05/12/20 Care time: The patient presented to the Emergency Department on the above date and was hospitalized for further evaluation of their emergent condition. - New Patient This patient is new to me today: Yes Date on this admission: 05/14/20 - Critical Care Critical Care patient: No ATTENDING PHYSICIAN STATEMENT I saw and evaluated the patient. I reviewed the resident's note and discussed the case with the resident. I agree with the resident's findings and plan as documented. SUBJECTIVE: OBJECTIVE: ASSESSMENT AND PLAN:
[2020-05-13 07:41] LABS: BASO % 0.6 % (0-2.0); EOS % 0.9 % (0-4.5); HEMOGLOBIN 12.4 GM/dL (11.7-16.9); MCHC 32.7 g/dl (32.0-35.9); MEAN CELL VOLUME 88.7 fl (80-96); MEAN PLT VOLUME 8.9 fl (7.5-11.1); MONO % 13.3 % (3.8-10.2); NEUT % 73.2 % (42.8-82.8); PLATELET COUNT 114 K/MM3 (134-434); RBC 4.28 M/mm3 (4.00-5.60); RDW 13.7 % (11.9-15.9); WHITE BLOOD COUNT 9.8 K/mm3 (4.0-10.0)
[2020-05-13 08:14] LABS: ALBUMIN 3.4 g/dl (3.4-5.0); BILIRUBIN,TOTAL 1.1 mg/dL (0.2-1); BLOOD UREA NITROGEN 12.6 mg/dL (7-18); CALCIUM 8.4 mg/dL (8.5-10.1); PHOSPHOROUS 3.4 mg/dL (2.5-4.9); POTASSIUM 4.2 mmol/L (3.5-5.1)
[2020-05-13] MEDS ORDERED: BUPIVACAINE HCL 100 ML ONE (09:12)
[2020-05-13] MEDS ORDERED: ROCURONIUM BROMIDE 50 MG/5 ML SYRINGE ONE (09:13)
[2020-05-13] MEDS ORDERED: PROPOFOL 20 ML ONE ×2 (09:13→10:09)
[2020-05-13] MEDS ORDERED: MIDAZOLAM HCL 2 MG/2 ML SINGLE DOSE VIAL ONE (09:13)
[2020-05-13] MEDS: DEXTROSE 5%-NORMAL SALINE 1,000 ML IV SCH (09:29)
--- NOTE | 2020-05-13 09:45 | CONSULT ---
- Consultation REQUESTING PROVIDER: Yasmani BELTRAN CONSULT REQUEST: We have been asked to surgically evaluate this patient for shemar endicitis. Hospitalist:Cirilo Lawler MD HISTORY OF PRESENT ILLNESS: JACKIE who is a 25y/o AA male who with complaints of abdominal pain. He has been having mild intermittent pain for ~1-2 weeks however he came to the ED because the pain was much worse and in the RLQ / R testicular region. He states he is nauseated but has not vomited. He denies any other GI/ c/o. It is somewhat difficult to obatain an exact hx. from him; pain is somewhat sharp ~ 6/10 and localized to the RLQ w/o radiation; not made better or worse by anything; he denies any trauma. PMHx: none PSHx: none Home Medications Medication Instructions Recorded NK [No Known Home Medication] 11/06/16 Allergies Allergy/AdvReac Type Severity Reaction Status Date / Time No Known Allergies Allergy Verified 05/12/20 17:39 REVIEW OF SYSTEMS: CONSTITUTIONAL: Absent: fever, chills, diaphoresis, generalized weakness, malaise, loss of appetite, weight change CARDIOVASCULAR: Absent: chest pain, syncope, palpitations, irregular heart rate, lightheadedness, peripheral edema RESPIRATORY: Absent: cough, shortness of breath, dyspnea with exertion, wheezing, stridor, hemoptysis GASTROINTESTINAL: Absent: abdominal pain, abdominal distension, nausea, vomiting, diarrhea, constipation, melena, hematochezia GENITOURINARY: Absent: dysuria, frequency, urgency, hesitancy, hematuria, flank pain, genital pain MUSCULOSKELETAL: Absent: myalgia, arthralgia, joint swelling, back pain, neck pain SKIN: Absent: rash, itching, pallor HEMATOLOGIC/IMMUNOLOGIC: Absent: easy bleeding, easy bruising, lymphadenopathy NEUROLOGIC: Absent: headache, focal weakness, paresthesias, dizziness, unsteady gait, seizure, mental status changes, bladder or bowel incontinence PSYCHIATRIC: Absent: anxiety, depression, suicidal or homicidal ideation, hallucinations. PHYSICAL EXAM: GENERAL: Awake, alert, and fully oriented, in no acute distress. HEAD: Normal with no signs of trauma. EYES: PERRL, sclera anicteric, conjunctiva clear. NECK: Normal ROM, supple without lymphadenopathy, JVD, or masses. ABDOMEN: Soft, localized RLQtenderness to palpation, not distended, normoactive bowel sounds, RLQ guarding, no rebound, no masses. No organomegaly. No hernias. Rovins sign is absent; psoas and obturator signs are present. MUSCULOSKELETAL: Normal ROM at all joints. No bony deformities or tenderness. No CVA tenderness. UPPER EXTREMITIES: 2+ pulses, warm, well-perfused. No cyanosis. Cap refill <2 seconds. No peripheral edema. LOWER EXTREMITIES: 2+ pulses, warm, well-perfused. No calf tenderness. No peripheral edema. NEUROLOGICAL: Normal speech, gait not observed. PSYCH: Cooperative. Good eye contact. Appropriate mood and affect. SKIN: Warm, dry, normal turgor, no rashes or lesions noted. Vital Signs Temperature 98.2 F 05/13/20 09:28 Pulse Rate 57 L 05/13/20 09:28 Respiratory Rate 18 05/13/20 09:28 Blood Pressure 111/69 05/13/20 09:28 O2 Sat by Pulse Oximetry (%) 100 05/13/20 09:28 Lab Results WBC 9.8 K/mm3 (4.0-10.0) 05/13/20 07:11 RBC 4.28 M/mm3 (4.00-5.60) 05/13/20 07:11 Hgb 12.4 GM/dL (11.7-16.9) 05/13/20 07:11 Hct 38.0 % (35.4-49) 05/13/20 07:11 MCV 88.7 fl (80-96) 05/13/20 07:11 MCHC 32.7 g/dl (32.0-35.9) 05/13/20 07:11 RDW 13.7 % (11.9-15.9) 05/13/20 07:11 Plt Count 114 K/MM3 (134-434) L 05/13/20 07:11 INR 1.27 (0.83-1.09) H 05/12/20 22:40 Sodium 138 mmol/L (136-145) 05/13/20 07:11 Potassium 4.2 mmol/L (3.5-5.1) 05/13/20 07:11 Chloride 105 mmol/L (98-107) 05/13/20 07:11 Carbon Dioxide 32 mmol/L (21-32) 05/13/20 07:11 Anion Gap 1 MMOL/L (8-16) L 05/13/20 07:11 BUN 12.6 mg/dL (7-18) 05/13/20 07:11 Creatinine 1.0 mg/dL (0.55-1.3) 05/13/20 07:11 Random Glucose 86 mg/dL (74-106) 05/13/20 07:11 Calcium 8.4 mg/dL (8.5-10.1) L 05/13/20 07:11 Blood Type O NEGATIVE 05/12/20 22:40 Antibody Screen Negative 05/12/20 22:40 Imaging w/u to date reviewed including the US and CT scan of the a/p. IMP: acute appendicitis; early PLAN: Given hx./PE/imaging findings advise lap appendectomy possible open; r/b/t/a/'s d/w the patient and informed consent obtained. Evan Reynolds MD FACS
[2020-05-13] MEDS ORDERED: LIDOCAINE HCL/PF 2% SDV 5ML VIAL ONE ×2 (10:00→10:38)
[2020-05-13] MEDS ORDERED: ceFAZolin SODIUM 1 GM VIAL ONE (10:04)
[2020-05-13] MEDS ORDERED: SODIUM CHLORIDE 0.9% P/F 10 ML VIAL IJ ONE (10:06)
[2020-05-13] MEDS ORDERED: DEXAMETHASONE SOD PHOSPHATE 4 MG/1 ML VIAL ONE (10:12)
[2020-05-13] MEDS ORDERED: NEOSTIGMINE METHYLSULFATE 0.5 MG/ML - 10 ML MDV ONE (10:37)
[2020-05-13] MEDS ORDERED: GLYCOPYRROLATE 0.2 MG/1 ML VIAL ONE (10:38)
[2020-05-13] MEDS ORDERED: ONDANSETRON 4 MG/2 ML VIAL IVPUSH PRN ×2 (10:40→11:48)
[2020-05-13] MEDS ORDERED: ACETAMINOPHEN 1000 MG/100 ML VIAL (NON FORMULARY) IVPB ONE ×2 (10:41→11:48)
[2020-05-13] MEDS ORDERED: KETOROLAC TROMETHAMINE 30 MG/1 ML VIAL ONE (10:42)
[2020-05-13] MEDS ORDERED: LACTATED RINGERS SOLUTION 1,000 ML IV SCH (10:45)
[2020-05-13] MEDS ORDERED: DESFLURANE GAS 240 ML BOTTLE IH ONE (10:51)
[2020-05-13] MEDS ORDERED: BUPIVACAINE HCL/PF 0.5% (5MG/ML) 10 ML VIAL IJ ONE (11:09)
--- NOTE | 2020-05-13 11:35 | OP ---
Operative Note - Note: Operative Date: 05/13/20 Pre-Operative Diagnosis: acute appendicitis Operation: laparoscopic appendectomy Findings: acute appendicitis Post-Operative Diagnosis: Same as Pre-op Surgeon: Evan Reynolds Anesthesiologist/RECRUITING TEAM LEAD: Jackeline Grant Anesthesia: General Specimens Removed: appendix Estimated Blood Loss (mls): 10
[2020-05-13] MEDS ORDERED: ACETAMINOPHEN INJECTION 100 ML IVPB ONE (11:56)
[2020-05-13] MEDS: LACTATED RINGERS SOLUTION 1,000 ML IV SCH ×2 (12:10→14:50)
[2020-05-13 14:22] VITALS: BMI 23.4
[2020-05-13] MEDS ORDERED: MORPHINE SULFATE 2 MG/ML VIAL IVPUSH PRN (14:34)
[2020-05-13] MEDS ORDERED: ACETAMINOPHEN 1000 MG/100 ML VIAL (NON FORMULARY) IVPB PRN (14:34)
--- NOTE | 2020-05-13 19:04 | PN ---
Progress Note (short form) - Note Progress Note: S: Patient going to the OR today. Examined patient after surgical intervention. Patient has no complaints with minimal tenderness around surgical sites. Denies any nausea or vomiting currently. No appetite at the moment. No flatus yet. Vital Signs Temperature 97.7 F 05/13/20 18:57 Pulse Rate 44 L 05/13/20 18:57 Respiratory Rate 18 05/13/20 14:52 Blood Pressure 106/59 L 05/13/20 18:57 O2 Sat by Pulse Oximetry (%) 100 05/13/20 18:57 PE: Gen: NAD, awake, alert, oriented HEENT: KRISTYN, MMM LUNG: CTA b/l without wheezes or rales. No splinting noted CARD: Bradycardic with regular rhythm no murmurs appreciated ABD: Soft, minimal tenderness near surgical site, incisions C/D/I, hypoactive BS EXT: No edema noted, gait stable CBC, BMP 05/13/20 07:11 05/13/20 07:11 Active Medications Acetaminophen (Ofirmev Injection -) 1,000 mg IVPB Q6H PRN PRN Reason: PAIN LEVEL 4 - 6 Stop: 05/14/20 14:34 Lactated Ringer's (Lactated Ringers Solution) 1,000 mls @ 125 mls/hr IV ASDIR ETHAN Last Admin: 05/13/20 14:50 Dose: 125 mls/hr Documented by: Morphine Sulfate (Morphine Sulfate) 2 mg IVPUSH Q6H PRN PRN Reason: PAIN LEVEL 7 - 10 Ondansetron HCl (Zofran Injection) 4 mg IVPUSH Q6H PRN PRN Reason: NAUSEA AND/OR VOMITING Assessment and Plan: Acute appendicits R Varicocele --POD 0 today --Patient adv to clears per surgical team --Pain control with Tylenol and Morphine depending on severity --Continue antiemetic Dispo: d/c planning pending diet, flatus, and surgical team Patient will need work excuse note upon d/c Cirilo Lawler DO - IM
--- NOTE | 2020-05-13 19:04 | OP ---
DATE OF OPERATION: 05/13/2020 PREOPERATIVE DIAGNOSIS: Acute appendicitis. POSTOPERATIVE DIAGNOSIS: Acute appendicitis. PROCEDURE: Laparoscopic appendectomy. SURGEON: Evan Reynolds MD ANESTHESIA: General. OPERATIVE FINDINGS: Acute appendicitis and adhesions of the right colon to the lateral abdominal wall and adhesive band from the abdominal wall down to the greater omentum. The rest of the findings were unremarkable. PROCEDURE: The patient was placed on the operating room table in the supine position, and after induction of general anesthesia and placement of a Moses catheter, the patient's abdomen was prepped with ChloraPrep and draped in sterile fashion. A timeout was taken, and pneumoperitoneum established at the umbilicus, using a Veress needle to an intraabdominal pressure of 15 mmHg. Next, a 12-mm suprapubic port just to the left of the midline was placed without incident, and then a left lower quadrant 5-mm port. The patient was placed in the head-down position and rotated to the left and laparoscopy carried out and previously noted findings were observed. The appendix was grasped and using blunt dissection and the LigaSure device mobilized from the lateral abdominal wall. The mesoappendix was serially divided using the LigaSure device as well. Once the base of the appendix was identified at the confluence of the 3 tenia on the cecum, a 60-mm Endo ANTONIO purple load stapler was placed across the base of the appendix and fired. The appendix was then placed in an EndoCatch and brought up to the abdominal wall at the 12-mm port site. The suture line was inspected for hemostasis and/or leak, and there was found to be none. The appendix was then removed with the 12-mm port, and sent the pathological examination. The 12-mm port was replaced and pneumoperitoneum reestablished, and hemostasis checked for and noted to be good. At this point, the two 5-mm ports and the 12-mm port were removed, and the pneumoperitoneum evacuated. The defect at the suprapubic port site was closed with a single [id number] 0 Vicryl suture, and the port sites were injected with 0.5% Marcaine. The skin edges were reapproximated with interrupted 4-0 Biosyn followed by Steri-Strips and Band-Aid dressings. The patient was then aroused from anesthesia and prior to this the Moses catheter removed, and the patient transferred to post anesthesia care unit in stable condition awake and alert. Estimated blood loss: 10 mL, Replacements: crystalloid, Drains: none, Specimen: appendix to pathology. I, Evan Reynolds, was physically present in the operating room from the time the patient was placed on the operating room table until he was transferred to the postanesthesia care unit in my accompaniment. MD MITSY Brandt/[id number] MTDD
--- NOTE | 2020-05-14 07:00 | EKG ---
Test Reason : Blood Pressure : / mmHG Vent. Rate : 061 BPM Atrial Rate : 061 BPM P-R Int : 152 ms QRS Dur : 092 ms QT Int : 386 ms P-R-T Axes : 088 081 067 degrees QTc Int : 388 ms NORMAL SINUS RHYTHM EARLY REPOLARIZATION NORMAL ECG NO PREVIOUS ECGS AVAILABLE BASELINE ARTIFACT Confirmed by MAITE BELTRAN, MARY ([id number]) on 05/14/2020 6:59:54 AM Referred By: Confirmed By:MARY ARORA MD
[2020-05-14 08:00] LABS: HEMATOCRIT 36.8 % (35.4-49); HEMOGLOBIN 12.1 GM/dL (11.7-16.9); MCH 28.9 pg (25.7-33.7); MCHC 32.9 g/dl (32.0-35.9); MEAN PLT VOLUME 9.3 fl (7.5-11.1); PLATELET COUNT 121 K/MM3 (134-434); RBC 4.18 M/mm3 (4.00-5.60); RDW 13.5 % (11.9-15.9); WHITE BLOOD COUNT 8.4 K/mm3 (4.0-10.0)
[2020-05-14 08:38] LABS: ALBUMIN 3.7 g/dl (3.4-5.0); BLOOD UREA NITROGEN 11.9 mg/dL (7-18); CALCIUM 8.6 mg/dL (8.5-10.1); CREATININE 0.9 mg/dL (0.55-1.3); POTASSIUM 4.2 mmol/L (3.5-5.1)
[2020-05-14 08:41] LABS: BILIRUBIN,TOTAL 0.5 mg/dL (0.2-1); TOT PROT 5.8 g/dl (6.4-8.2)
--- NOTE | 2020-05-14 09:25 | PN ---
Progress Note (short form) - Note Progress Note: Attending Surgeon POD#1 No c/o; tolerated liquids and voided and ambulated VSS AF abdo-soft; port sites c/d/i; o/w negative. WBC normal IMP: stable post op PLAN: Advance diet and discharge home to office f/u next week. Evan Reynolds MD FACS
--- NOTE | 2020-05-14 10:07 | DS ---
Physical Exam: SUBJECTIVE: Pt improved today. Able to walk around and tolerating diet. Patient having flatus. No fevers/chills. Pain minimal. OBJECTIVE: Vital Signs Period Temp Pulse Resp BP Sys/Dunlap Pulse Ox Last 24 Hr 97.2 F-98.1 F 44-82 18-20 101-137/53-84 10-100 PHYSICAL EXAM GENERAL: The patient is awake, alert, and fully oriented, in no acute distress. HEENT: Nc/AT, EOMI, KRISTYN, sclera anicteric, MMM LUNGS: CTA bilaterally, no wheezes, no crackles, no accessory muscle use. HEART: RRR, S1, S2 without murmur ABDOMEN: Soft, nondistendend, minimal tenderness with palpation, incision sites C/D/I, normoactive bowel sounds, no guarding EXTREMITIES: 2+ DP pulses, warm, well-perfused, no edema. LABS Laboratory Results - last 24 hr 05/14/20 05/14/20 06:48 06:48 WBC 8.4 RBC 4.18 Hgb 12.1 Hct 36.8 MCV 88.0 MCH 28.9 MCHC 32.9 RDW 13.5 Plt Count 121 L MPV 9.3 Sodium 137 Potassium 4.2 Chloride 104 Carbon Dioxide 28 Anion Gap 6 L BUN 11.9 Creatinine 0.9 Est GFR (CKD-EPI)AfAm 137.10 Est GFR (CKD-EPI)NonAf 118.29 Random Glucose 82 Calcium 8.6 Total Bilirubin 0.5 AST 7 L ALT 14 Alkaline Phosphatase 36 L Total Protein 5.8 L Albumin 3.7 Imaging: CT A/P: Impression: Findings are noted as described above suggestive of acute appendicitis. No abscess or phlegmon is visualized. There is minimal to mild diffuse fluid-filled small and large bowel dilatation - ? acute enterocolitis versus ileus or recent fluid ingestion. Pelvis U/S (for r/o torsion): There is apparent visualization of the appendix within the right lower quadrant. The appendix ap pears to be mildly thickened with a 1 cm diameter. There also appears to be a small amount of fluid accumulation within the appendiceal lumen. No gross periappendiceal fluid or abscess is visualized. These findings could be on the basis of acute appendicitis. Correlate clinically. Additional evaluat ion utilizing MRI or contrast-enhanced CT may be considered. HOSPITAL COURSE: Date of Admission:05/12/20 Date of Discharge: 05/14/20 Patient originally seen due to R testicular pain and noted to have appendicitis and R varicocele during workup. Patient had CT imaging which confirmed appendicitis and was taken to OR with Dr. Reynolds for laparoscopic appendectomy. Patient's perioperative course was unremarkable. Post-operatively he had his diet advanced and had minimal pain controlled with tylenol. Patient is being discharged today with interval follow-up with Dr. Reynolds in 7-10 days. He is able to tolerate a regular diet and it was recommended for him to continue Tylenol for pain mitigation. Minutes to complete discharge: 33 Discharge Summary Problems reviewed: Yes Reason For Visit: APPENDICITIS Current Active Problems Abdominal pain (Acute) Appendicitis (Acute) Testicular pain, right (Acute) Condition: Stable - Instructions Diet, Activity, Other Instructions: Dr. Reynolds Discharge Instructions Dear NAVA CLARK, Post Operative Instructions Physical activity Resume your normal everyday activity as tolerated no heavy lifting or exercise until seen by your surgeon. You may walk unlimited amounts of and climb stairs. You may resume driving the car when you feel safe and comfortable behind the wheel. Wound care You have a liquid bandage over your incisions. This will come off slowly on its own over the next few weeks. Please avoid picking at it if you notice it flaking. You may shower starting tomorrow. When showering allow soap and water to run over the incision. Do not scrub, pat dry after showering. Diet There are no dietary restrictions. Eat healthy, high-fiber foods. Drink 6 to 8 glasses of liquid each day. This will assist in keeping your bowels are regular. Pain management You may take Tylenol or acetaminophen or Ibuprofen (for example, Motrin, Advil etc.) Any pain prescription medication ordered should be taken as prescribed for moderate to severe pain. Call Dr. Reynolds for any of the following: Severe pain not relieved by medication Fever of 101 or higher Excessive bleeding or drainage on dressing Inability to urinate Call the office at [phone] for a post operative appointment in 7 - 10 days. Referrals: Evan Reynolds MD [Staff Physician] - Ravindra Austin MD [Primary Care Provider] - Disposition: HOME - Home Medications Comprehensive Discharge Medication List: Ambulatory Orders NK [No Known Home Medication] 11/06/16 This patient is new to me today: No Emergency Visit: Yes ED Registration Date: 05/12/20 Care time: The patient presented to the Emergency Department on the above date and was hospitalized for further evaluation of their emergent condition. Critical Care patient: No - Discharge Referral Referred to [facility] No
[2020-05-14] MEDS ORDERED: ACETAMINOPHEN 325 MG TABLET (FP) PO PRN ×2 (13:12→13:19)
[2020-05-14 14:13] VITALS: BP 131/95; PULSE 69; TEMP 98.1
--- NOTE | 2020-05-17 14:56 | PATH ---
Surgical Pathology Report Patient Name: NAVA CLARK Med. Rec. #: [id number] /Age/Gender: 1995 (Age: 25) / M Account: [id number] Location: [address] [place] [address]/[facility] Taken: 05/13/2020 Received: 05/15/2020 Reported: 05/17/2020 Physicians: MD Cirilo Acosta M.D. Specimen(s) Received APPENDIX Clinical History Acute appendicitis Final Diagnosis APPENDIX, APPENDECTOMY: SEVERE ACUTE APPENDICITIS AND PERIAPPENDICITIS. Electronically Signed Sean Morales M.D. Gross Description Received in formalin, labeled "appendix," is an 8.5 cm. in length vermiform appendix with a stapled margin of resection and minimal attached fat. The serosa is brown and hemorrhagic with attached exudate. Sectioning reveals a hemorrhagic lumen. The wall of the appendix averages 0.1 cm. in thickness. Map Plotter sections are submitted in one cassette. /05/15/2020 saudi05/15/2020
== END 2020-05-14 14:31 | disposition home or self-care (01) | DRG 225 ==
LOC: JER 17:26 → JERBED 21:31 → J6S 05-13 12:48
PROVIDERS: ADMIT Internal Medicine; ATTEND Internal Medicine
PROC: 0DTJ4ZZ Resection of Appendix, Percutaneous Endoscopic Approach (ICD-10-PCS; principal; 2020-05-13 09:00)
DX: K35.80 Unspecified acute appendicitis (principal); N50.811 Right testicular pain; R11.2 Nausea with vomiting, unspecified; I86.1 Scrotal varices; F17.210 Nicotine dependence, cigarettes, uncomplicated; R10.31 Right lower quadrant pain
CPT/HCPCS: 36415; 74177-TC; 76856-TC; 76870-TC; 80053; 81003; 82248; 84100; 85025; 85027; 85610; 85730; 86850; 86900; 86901; 87040; 87491; 87591; 88304-TC; 93005; 93010; 94760; 99285-25; C9803; J0131; U0003

== ENCOUNTER 2021-01-03 17:52 | Emergency (ER) | payer OTHER ==
[2021-01-03 18:01] VITALS: TEMP 97.9; BMI 24.4
[2021-01-03] MEDS ORDERED: SODIUM CHLORIDE 0.9% 500 ML INFUS.BAG IV ONE (18:12)
[2021-01-03] MEDS ORDERED: MAG HYDROX/AL HYDROX/SIMETH 30 ML UNIT-DOSE CUP PO ONE (18:12)
[2021-01-03] MEDS ORDERED: DICYCLOMINE HCL 20 MG TABLET PO ONE (18:12)
[2021-01-03] MEDS ORDERED: MAG HYDROX/AL HYDROX/SIMETH 30 ML UNIT-DOSE CUP ONE (18:54)
[2021-01-03 19:51] LABS: BASO % 0.8 % (0-2.0); EOS % 0.8 % (0-4.5); HEMATOCRIT 39.9 % (35.4-49); HEMOGLOBIN 13.3 GM/dL (11.7-16.9); LYMPH % 32.9 % (8-40); MCH 29.5 pg (25.7-33.7); MCHC 33.3 g/dl (32.0-35.9); MEAN CELL VOLUME 88.6 fl (80-96); MONO % 9.2 % (3.8-10.2); NEUT % 56.3 % (42.8-82.8); PLATELET COUNT 153 K/MM3 (134-434); RDW 13.5 % (11.9-15.9); WHITE BLOOD COUNT 4.5 K/mm3 (4.0-10.0)
[2021-01-03 20:08] LABS: ALBUMIN 4.4 g/dl (3.4-5.0); CALCIUM 8.9 mg/dL (8.5-10.1)
[2021-01-03 20:09] LABS: BLOOD UREA NITROGEN 11.3 mg/dL (7-18)
[2021-01-03 20:11] VITALS: BP 124/72; PULSE 61
[2021-01-03 20:12] LABS: CREATININE 0.7 mg/dL (0.55-1.3)
[2021-01-03 20:13] LABS: BILIRUBIN,TOTAL 0.5 mg/dL (0.2-1); TOT PROT 7.1 g/dl (6.4-8.2)
[2021-01-03 20:25] LABS: URINE APPEARANCE CLEAR; URINE BILIRUBIN NEGATIVE (NEGATIVE); URINE COLOR YELLOW; URINE GLUCOSE (UA) NEGATIVE (NEGATIVE); URINE KETONE NEGATIVE (NEGATIVE); URINE LEUK ESTERASE NEGATIVE (NEGATIVE); URINE NITRITE NEGATIVE (NEGATIVE); URINE PROTEIN NEGATIVE (NEGATIVE)
== END 2021-01-03 20:50 | disposition home or self-care (01) ==
LOC: JER 17:52
DX: R10.32 Left lower quadrant pain (principal)
CPT/HCPCS: 36415; 80053; 81003; 83690; 85025; 99283-25

== ENCOUNTER 2021-07-09 18:26 | Emergency (ER) | payer OTHER ==
[2021-07-09 18:31] VITALS: BP 111/72; PULSE 52; TEMP 97.6; BMI 23.7
== END 2021-07-09 21:26 | disposition left against medical advice (07) ==
LOC: JER 18:26
DX: R10.11 Right upper quadrant pain (principal)
CPT/HCPCS: 99281-25

== ENCOUNTER 2022-01-28 20:17 | Emergency (ER) | payer OTHER ==
[2022-01-28 20:59] VITALS: BP 116/72; PULSE 63; TEMP 98.7; BMI 23.7
== END 2022-01-28 23:25 | disposition home or self-care (01) ==
LOC: JER 20:17
DX: U07.1 COVID-19 (principal)
CPT/HCPCS: 99283-25

== ENCOUNTER 2022-11-03 06:33 | Emergency (ER) | payer OTHER ==
[2022-11-03 06:48] VITALS: BP 125/80; PULSE 64; RESP 18; TEMP 97.5; BMI 23.0
[2022-11-03] MEDS ORDERED: SODIUM CHLORIDE 0.9% 500 ML INFUS.BAG IV ONE (07:43)
[2022-11-03] MEDS ORDERED: ONDANSETRON 4 MG/2 ML VIAL IVPUSH ONE (07:43)
[2022-11-03] MEDS ORDERED: ACETAMINOPHEN 1000 MG/100 ML BAG IVPB ONE (07:43)
[2022-11-03] MEDS ORDERED: MAG HYDROX/AL HYDROX/SIMETH 30 ML UNIT-DOSE CUP PO ONE (07:58)
[2022-11-03] MEDS ORDERED: ACETAMINOPHEN INJECTION 100 ML IVPB ONE (07:58)
[2022-11-03] MEDS ORDERED: FAMOTIDINE 20 MG/50 ML IVPB 20 MG/50 ML MG IVPB ONE ×2 (07:58→08:16)
[2022-11-03] MEDS ORDERED: ONDANSETRON 4 MG/2 ML VIAL ONE (07:58)
[2022-11-03] MEDS ORDERED: MAG HYDROX/AL HYDROX/SIMETH 30 ML UNIT-DOSE CUP ONE (08:16)
[2022-11-03 09:26] LABS: BASO % 0.6 % (0-2.0); EOS % 1.1 % (0-4.5); HEMATOCRIT 39.1 % (35.4-49); HEMOGLOBIN 13.4 GM/dL (11.7-16.9); LYMPH % 24.2 % (8-40); MCH 29.6 pg (25.7-33.7); MCHC 34.2 g/dl (32.0-35.9); MEAN CELL VOLUME 86.5 fl (80-96); MEAN PLT VOLUME 9.3 fl (7.5-11.1); MONO % 7.7 % (3.8-10.2); NEUT % 66.4 % (42.8-82.8); PLATELET COUNT 160 10^3/uL (134-434); RBC 4.52 M/mm3 (4.00-5.60); RDW 13.7 % (11.9-15.9); WHITE BLOOD COUNT 5.7 K/mm3 (4.0-10.0)
[2022-11-03 09:29] LABS: URINE APPEARANCE CLEAR; URINE BILIRUBIN NEGATIVE (NEGATIVE); URINE COLOR YELLOW; URINE GLUCOSE (UA) NEGATIVE (NEGATIVE); URINE KETONE NEGATIVE (NEGATIVE); URINE LEUK ESTERASE NEGATIVE (NEGATIVE); URINE NITRITE NEGATIVE (NEGATIVE); URINE PROTEIN NEGATIVE (NEGATIVE); URINE UROBILINOGEN 0.2 mg/dL (0.2-1.0)
[2022-11-03 09:49] LABS: CALCIUM 8.9 mg/dL (8.5-10.1)
[2022-11-03 09:50] LABS: ALBUMIN 4.1 g/dl (3.4-5.0); BLOOD UREA NITROGEN 10.5 mg/dL (7-18); MAGNESIUM 1.9 mg/dL (1.8-2.4)
[2022-11-03 09:52] LABS: CREATININE 0.9 mg/dL (0.55-1.3)
[2022-11-03 09:54] LABS: BILIRUBIN,TOTAL 0.4 mg/dL (0.2-1); TOT PROT 6.8 g/dl (6.4-8.2)
[2022-11-03] MEDS ORDERED: KETOROLAC TROMETHAMINE 15 MG/ML VIAL IVPUSH ONE (10:01)
[2022-11-03] MEDS ORDERED: KETOROLAC TROMETHAMINE 15 MG/ML VIAL ONE (10:08)
== END 2022-11-03 10:20 | disposition home or self-care (01) ==
LOC: JER 06:33
PROC: 3E033GC Introduction of Other Therapeutic Substance into Peripheral Vein, Percutaneous Approach (ICD-10-PCS; principal; 2022-11-03)
PROC: 3E033GC Introduction of Other Therapeutic Substance into Peripheral Vein, Percutaneous Approach (ICD-10-PCS; 2022-11-03)
PROC: 3E033GC Introduction of Other Therapeutic Substance into Peripheral Vein, Percutaneous Approach (ICD-10-PCS; 2022-11-03)
PROC: 3E033GC Introduction of Other Therapeutic Substance into Peripheral Vein, Percutaneous Approach (ICD-10-PCS; 2022-11-03)
DX: N20.0 Calculus of kidney (principal); R11.0 Nausea; R10.31 Right lower quadrant pain; R10.33 Periumbilical pain; Z20.822 Contact with and (suspected) exposure to COVID-19
CPT/HCPCS: 0241U-QW; 36415; 74176-TC; 76705-TC; 76775-TC; 80053; 81003; 83690; 83735; 85025; 87086; 99285-25

== ENCOUNTER 2023-04-11 16:01 | Emergency (ER) | payer OTHER ==
[2023-04-11 16:19] VITALS: BP 110/84; PULSE 69; RESP 18; TEMP 98.4; BMI 22.4
[2023-04-11] MEDS ORDERED: IBUPROFEN 400 MG TABLET (FP) PO ONE ×2 (17:16→17:39)
== END 2023-04-11 19:17 | disposition home or self-care (01) ==
LOC: JERFT 16:01 → JER 16:01 → JERFT 19:17
DX: J02.9 Acute pharyngitis, unspecified (principal); R13.10 Dysphagia, unspecified; Z20.822 Contact with and (suspected) exposure to COVID-19
CPT/HCPCS: 0241U-QW; 87651; 99283-25